=== PATIENT | male | born 2005 | race Caucasian/White ===

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

== ENCOUNTER 2023-01-27 23:53 | Emergency (ER) | payer MEDICAID ==
[~2023-01-27] VITALS: Ht 180.3 cm; Wt 63.6 kg
[~2023-01-27 23:53] MED LIST: NO HOME MEDS
[2023-01-28 00:03] VITALS: TEMP 97.8
[2023-01-28] MEDS ORDERED: bacitracin 15gm ointment TP ONE ×2 (00:05→02:25)
[2023-01-28] MEDS ORDERED: LIDOcaine 1% W/epiNEPHrine 1:100,000 20ml vial SQ ONE (00:05)
[2023-01-28] MEDS ORDERED: LIDOCAINE 1%/EPI 1:100,000 inj. 10 ML multi-dose vial SQ ONE (00:25)
[2023-01-28] MEDS ORDERED: ondansetron 4mg rapidly disintigrating tab PO ONE (01:05)
[2023-01-28 01:52] LABS: ALANINE AMINOTRANSFERASE 31 U/L (12-78); ALBUMIN 4.4 G/DL (3.4-5.0); ALBUMIN/GLOBULIN RATIO 1.3 (1.1-1.5); ALKALINE PHOSPHATASE 104 IU/L (20-180); ANION GAP 14 (8-16); ASPARTATE AMINO TRANSFERASE 28 U/L (10-37); BASOPHILS % (AUTO) 0.6 % (0-1); BILIRUBIN,TOTAL 0.6 MG/DL (0.1-1.0); BLOOD UREA NITROGEN 12 MG/DL (7-18); BUN/CREATININE RATIO 13.2 (10.0-20.0); CALCIUM 8.5 MG/DL (8.5-10.1); CHLORIDE 101 MMOL/L (99-107); CREATININE 0.91 MG/DL (0.60-1.10); EOSINOPHILS % (AUTO) 0.2 % (0-6); ETHANOL 281 MG/DL (<10); GLUCOSE 99 MG/DL (70-104); HEMATOCRIT 44.5 % (42.0-52.0); HEMOGLOBIN 15.4 g/dl (14.0-17.9); LYMPHOCYTES # (AUTO) 1.6 X10'3 (1.1-4.8); LYMPHOCYTES % (AUTO) 22.3 % (21-51); MEAN CORPUSCULAR HEMOGLOBIN 31.2 PG (27.0-31.0); MEAN CORPUSCULAR HGB CONC 34.7 g/dL (33.0-36.5); MEAN PLATELET VOLUME 8.2 FL (7.4-10.4); MONOCYTES # (AUTO) 0.3 X10'3 (0-0.9); MONOCYTES % (AUTO) 4.3 % (2-12); NEUTROPHILS # (AUTO) 5.1 X10'3 (1.8-7.7); NEUTROPHILS % (AUTO) 72.6 % (42-75); PLATELET COUNT 265 X10'3 (140-440); POTASSIUM 3.2 MMOL/L (3.5-5.1); RED BLOOD COUNT 4.94 X10'6 (4.70-6.10); RED CELL DISTRIBUTION WIDTH 12.5 % (11.5-14.5); SODIUM 138 MMOL/L (135-145); TOTAL CARBON DIOXIDE 23.5 MMOL/L (24-32); TOTAL PROTEIN 7.9 G/DL (6.4-8.2); eCRCL 118 ML/MIN; eGFR > 90 ML/MIN
[2023-01-28] MEDS ORDERED: clindamycin 150mg capsule PO ONE (02:15)
[2023-01-28] MEDS ORDERED: CLIN-214 PO (02:16)
[2023-01-28 02:38] VITALS: BP 106/70; PULSE 96; RESP 18; O2SAT 100
== END 2023-01-28 02:43 | disposition home or self-care (01) ==
LOC: ER 23:53
DX: S02.85XA Fracture of orbit, unspecified, initial encounter for closed fracture (principal); S01.112A Laceration without foreign body of left eyelid and periocular area, initial encounter; Y08.89XA Assault by other specified means, initial encounter; Y93.89 Activity, other specified; Y92.89 Other specified places as the place of occurrence of the external cause; Y99.8 Other external cause status
CPT/HCPCS: 12013; 36415; 70450; 70486; 72125; 80053; 80320; 85025; 99284

== ENCOUNTER 2025-01-27 03:09 | Emergency (ER) | payer MEDICAID ==
[~2025-01-27] VITALS: Ht 180.3 cm; Wt 61.4 kg
[~2025-01-27 03:09] MED LIST changes: +CLIN-214 PO
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
[2025-01-27 03:57] VITALS: BP 128/76; PULSE 104; RESP 16; TEMP 98.6; O2SAT 96
== END 2025-01-27 03:59 | disposition home or self-care (01) ==
LOC: ER 03:10
DX: Z00.8 Encounter for other general examination (principal); V49.40XA Driver injured in collision with unspecified motor vehicles in traffic accident, initial encounter; Y93.89 Activity, other specified; Y92.410 Unspecified street and highway as the place of occurrence of the external cause; Y99.8 Other external cause status
CPT/HCPCS: 99283; A4615